=== PATIENT | female | born 1955 | race Two or more races ===

== ENCOUNTER → 2021-05-12 | Outpatient (CLI) | payer MEDICARE, BC | END | disposition home or self-care (01) | LOC: Rad HDHVI 08:42 | PROVIDERS: ATTEND Internal Medicine Cardiovascular Disease | DX: I10 Essential (primary) hypertension (principal); E78.5 Hyperlipidemia, unspecified | CPT/HCPCS: 93880 ==

== ENCOUNTER → 2022-05-13 | Outpatient (CLI) | payer MEDICARE, BC ==
[2022-05-13 11:36] LABS: Urine Blood Negative /uL (Negative); Urine Specific Gravity 1.012 (1.001-1.035)
[2022-05-13 11:49] LABS: Basophils # (auto) 0 10 ^3/uL (0-0.2); Basophils % (auto) 0.6 % (0.0-2.0); Eosinophils # (auto) 0.1 10 ^3/uL (0-0.8); Eosinophils % (auto) 1.5 % (0.0-7.0); Hematocrit 39.2 % (36.0-46.0); Hemoglobin 13.2 g/dL (12.2-16.2); Lymphocytes # (auto) 1.8 10 ^3/uL (0.4-5.4); Lymphocytes % (auto) 29.7 % (10.0-50.0); Mean Corpuscular Hemoglobin 31.5 pg (28.0-32.0); Mean Corpuscular Hgb Conc. 33.6 g/dL (32.0-36.0); Mean Corpuscular Volume 93.6 fL (80.0-100.0); Monocytes # (auto) 0.5 10 ^3/uL (0-1.3); Monocytes % (auto) 7.7 % (0.0-12.0); Neutrophils # (auto) 3.6 10 ^3/uL (1.6-8.6); Neutrophils % (auto) 60.5 % (37.0-80.0); Nucleated Red Blood Cells % 0.1 %; Red Blood Cells 4.19 10^6/uL (4.0-5.20); Red Cell Distribution Width 12.3 % (11.8-14.3); White Blood Cell 5.9 10^3/uL (4.4-10.8)
[2022-05-13 12:03] LABS: BUN/Creatinine Ratio 24.2; Potassium 3.6 mmol/L (3.5-5.1)
[2022-05-13 12:04] LABS: Albumin 3.9 g/dL (3.4-5.0); Bilirubin, Total 0.7 mg/dL (0.2-1.0); Calcium 9.5 mg/dL (8.5-10.1); Total Protein 7.4 g/dL (6.4-8.2)
[2022-05-13 12:16] LABS: Free T4 (Free Thyroxine) 1.26 ng/dL (0.89-1.76)
== END | disposition home or self-care (01) ==
LOC: LAB 09:32
PROVIDERS: ATTEND Internal Medicine Cardiovascular Disease
DX: I11.0 Hypertensive heart disease with heart failure (principal); I50.43 Acute on chronic combined systolic (congestive) and diastolic (congestive) heart failure; E55.9 Vitamin D deficiency, unspecified; D51.3 Other dietary vitamin B12 deficiency anemia; D64.9 Anemia, unspecified; E11.9 Type 2 diabetes mellitus without complications; R00.2 Palpitations; R53.1 Weakness; R30.0 Dysuria
CPT/HCPCS: 36415; 80053; 80061; 81003; 82306; 82607; 83036; 84439; 84443; 85025

== ENCOUNTER → 2022-06-24 | Outpatient (CLI) | payer MEDICARE, BC | END | disposition home or self-care (01) | LOC: Rad HDHVI 13:48 | PROVIDERS: ATTEND Internal Medicine Cardiovascular Disease | DX: R00.2 Palpitations (principal); I10 Essential (primary) hypertension | CPT/HCPCS: 93306 ==

== ENCOUNTER → 2023-05-31 | Outpatient (CLI) | payer MEDICARE, BC | END | disposition home or self-care (01) | LOC: Rad HDHVI 15:50 | PROVIDERS: ATTEND Internal Medicine Cardiovascular Disease | DX: I10 Essential (primary) hypertension (principal) | CPT/HCPCS: 93925 ==

== ENCOUNTER → 2023-06-26 | Outpatient (CLI) | payer MEDICARE, BC ==
[~2023-06-26] MED LIST: ALPR0.25 PO; ARGI500C5 PO; ATOR40TA52 PO; CLON0.1T PO; CYCL-839 PO; DICY10CA PO; DULO1CAP6 PO; ERGO1CAP12 PO; ESTR1TAB5 PO; MAGN1POW PO; METO-289 PO; OMEP20TA PO; OXYB5TAB24 PO; POTA10TA51 PO; TRIA75TA55 PO; TURMPOW PO; VALS160T6 PO
[2023-06-26 10:22] VITALS: BP 137/65; PULSE 70; RESP 16; O2SAT 98
[2023-06-26 10:39] VITALS: BP 119/61; PULSE 65; RESP 16; O2SAT 98
== END | disposition home or self-care (01) ==
LOC: CHF HDHVI 09:59
PROVIDERS: ATTEND Internal Medicine Cardiovascular Disease
DX: Z01.818 Encounter for other preprocedural examination (principal); R06.02 Shortness of breath; I10 Essential (primary) hypertension; I27.21 Secondary pulmonary arterial hypertension
CPT/HCPCS: 93005; G0463

== ENCOUNTER 2023-06-29 06:50 | Day surgery (SDC) | payer MEDICARE, BC ==
[2023-06-26 12:37] LABS: Basophils # (auto) 0 10 ^3/uL (0-0.2); Basophils % (auto) 0.7 % (0.0-2.0); Eosinophils # (auto) 0.1 10 ^3/uL (0-0.8); Eosinophils % (auto) 1.5 % (0.0-7.0); Hemoglobin 13.3 g/dL (12.2-16.2); Lymphocytes # (auto) 1.9 10 ^3/uL (0.4-5.4); Lymphocytes % (auto) 30.5 % (10.0-50.0); Monocytes # (auto) 0.5 10 ^3/uL (0-1.3); Monocytes % (auto) 8.3 % (0.0-12.0); Neutrophils # (auto) 3.7 10 ^3/uL (1.6-8.6); Nucleated Red Blood Cells % 0.1 %; Red Blood Cells 4.15 10^6/uL (4.0-5.20); Red Cell Distribution Width 12.4 % (11.8-14.3); White Blood Cell 6.3 10^3/uL (4.4-10.8)
[2023-06-26 12:52] LABS: INR 1.12 (0.9-1.15); Partial Thromboplastin Time 27.3 SEC (24.5-34.5); Prothrombin Time 11.7 sec (9.3-11.8)
[2023-06-26 13:26] LABS: Anion Gap 7 (5-15); Carbon Dioxide 31 mmol/L (20-30); Chloride 100 mmol/L (98-107); Potassium 3.6 mmol/L (3.5-5.1); Sodium 138 mmol/L (136-145)
[2023-06-26 13:28] LABS: Calcium 10.6 mg/dL (8.5-10.1)
[2023-06-26 13:32] LABS: BUN/Creatinine Ratio 12.4 (10.0-20.0); Blood Urea Nitrogen 14 mg/dL (9-23); Glucose 108 mg/dL (74-106)
[2023-06-29] VITALS (7 sets, daily range): BP systolic 136–151; BP diastolic 47–67; PULSE 60–70; RESP 12–15; O2SAT 94–99
[~2023-06-29] VITALS: Ht 157.5 cm; Wt 56.7 kg
[2023-06-29] MEDS ORDERED: IOHEXOL 350 MG/ML 100ML IJ ONE ×2 (07:49→08:23)
[2023-06-29] MEDS ORDERED: IODIXANOL 320MG/ML 100ML BTL IV ONE ×2 (07:49→08:37)
[2023-06-29] MEDS ORDERED: LIDOCAINE 2%HCL (LOCAL ANESTH.) INJ 20ML MDV ONE ×2 (07:49→08:23)
[2023-06-29] MEDS ORDERED: diphenhdrAMINE HCL 50 MG/1 ML VL ONE (08:22)
[2023-06-29] MEDS ORDERED: methylPREDNISolone SOD SUCC 125 MG/2 ML VL ONE (08:22)
[2023-06-29] MEDS ORDERED: fentaNYL CITRATE 100 MCG/2 ML VL ONE (08:23)
[2023-06-29] MEDS ORDERED: MIDAZOLAM HCL 2MG/2ML 2ml VIAL (1mg/ml) ONE (08:23)
[2023-06-29] MEDS ORDERED: FAMOTIDINE (10MG/ML) 2ML VL IV ONE (08:23)
[2023-06-29] MEDS ORDERED: SODIUM CHL 0.9% 0 ML ONE (08:24)
[2023-06-29] MEDS ORDERED: ANGIOMAX 250 MG VIAL IV ONE (08:24)
[2023-06-29] MEDS ORDERED: ACETAMINOPHEN 500 MG TAB PO ONE (10:25)
[2023-06-29] MEDS: ACETAMINOPHEN 500 MG TAB PO ONE ×2 (10:32→10:36)
== END 2023-06-29 11:35 | disposition home or self-care (01) ==
LOC: CATH 06:50
PROVIDERS: ATTEND Internal Medicine Cardiovascular Disease
DX: R07.89 Other chest pain (principal); R06.02 Shortness of breath; I27.20 Pulmonary hypertension, unspecified; I73.00 Raynaud's syndrome without gangrene; I73.9 Peripheral vascular disease, unspecified; I10 Essential (primary) hypertension; E78.5 Hyperlipidemia, unspecified; G62.9 Polyneuropathy, unspecified; M79.7 Fibromyalgia
CPT/HCPCS: 36415; 80048; 85025; 85610; 85730; 93460; C1757; C1894; J1200; J1644; J2250; J2930; J3490; Q9967; 99152

== ENCOUNTER → 2023-08-28 | Outpatient (CLI) | payer MEDICARE, BC | END | disposition home or self-care (01) | LOC: Rad HDHVI 13:45 | PROVIDERS: ATTEND Internal Medicine Cardiovascular Disease | DX: I10 Essential (primary) hypertension (principal); R00.2 Palpitations | CPT/HCPCS: 93306 ==

== ENCOUNTER → 2023-12-20 | Outpatient (CLI) | payer MEDICARE, BC ==
[~2023-12-20] MED LIST changes: +POTA-36 PO; -POTA10TA51 PO; +READI-CAT 2 (BARIUM SULF)(VANILLA SMOOTHIE) 450ML ONE
== END | disposition home or self-care (01) ==
LOC: Rad HDHVI 14:52
PROVIDERS: ATTEND Internal Medicine Cardiovascular Disease
DX: K76.0 Fatty (change of) liver, not elsewhere classified (principal); K42.9 Umbilical hernia without obstruction or gangrene; I70.0 Atherosclerosis of aorta; M16.11 Unilateral primary osteoarthritis, right hip; M76.21 Iliac crest spur, right hip; Z90.710 Acquired absence of both cervix and uterus; Z90.49 Acquired absence of other specified parts of digestive tract
CPT/HCPCS: 73700; 74176

== ENCOUNTER → 2024-04-04 | Outpatient (CLI) | payer MEDICARE, BC ==
[~2024-04-04] MED LIST changes: -READI-CAT 2 (BARIUM SULF)(VANILLA SMOOTHIE) 450ML ONE
== END | disposition home or self-care (01) ==
LOC: Rad HDHVI 10:58
PROVIDERS: ATTEND Internal Medicine Cardiovascular Disease
DX: M17.11 Unilateral primary osteoarthritis, right knee (principal); M25.561 Pain in right knee; M25.511 Pain in right shoulder
CPT/HCPCS: 73030; 73562

== ENCOUNTER → 2024-09-10 | Outpatient (CLI) | payer MEDICARE, BC ==
--- NOTE | 2024-09-10 14:42 | DVH ---
XY CHEST TWO VIEWS ROUTINE CLINICAL HISTORY: PRE OP/pain COMPARISON: None TECHNIQUE: Frontal and lateral view of the chest was obtained FINDINGS: Lines and Tubes: None Lungs: No focal consolidation. Pleura: No effusion. No pneumothorax. Cardiomediastinal contours: Unremarkable Bones: No acute osseous abnormality. IMPRESSION: No acute cardiopulmonary disease.
== END | disposition home or self-care (01) ==
LOC: Rad HDHVI 12:35
PROVIDERS: ATTEND Internal Medicine Cardiovascular Disease
DX: R06.02 Shortness of breath (principal)
CPT/HCPCS: 71046

== ENCOUNTER → 2024-09-11 | Outpatient (CLI) | payer MEDICARE, BC | END | disposition home or self-care (01) | LOC: Rad HDHVI 08:01 | PROVIDERS: ATTEND Internal Medicine Cardiovascular Disease | DX: Z01.810 Encounter for preprocedural cardiovascular examination (principal) | CPT/HCPCS: 93306 ==

== ENCOUNTER → 2024-09-13 | Outpatient (CLI) | payer MEDICARE, BC ==
[~2024-09-13] VITALS: Ht 157.5 cm; Wt 63.5 kg
[~2024-09-13] MED LIST changes: +ADENOSINE 53 MG in GIVE UN-DILUTED 0 ML IV ONE; +ADENOSINE 90 MG/30 ML INJ IV ONE
== END | disposition home or self-care (01) ==
LOC: Rad HDHVI 08:28
PROVIDERS: ATTEND Internal Medicine Cardiovascular Disease
DX: Z01.810 Encounter for preprocedural cardiovascular examination (principal); R07.89 Other chest pain; R06.02 Shortness of breath; E78.00 Pure hypercholesterolemia, unspecified; I47.20 Ventricular tachycardia, unspecified; I11.9 Hypertensive heart disease without heart failure; Z82.49 Family history of ischemic heart disease and other diseases of the circulatory system
CPT/HCPCS: 78452; 93005; 93017; A9500; J0153; 96374; 96375

== ENCOUNTER 2025-01-06 08:58 | Outpatient (CLI) | payer MEDICARE, BC ==
[~2025-01-06 08:58] MED LIST changes: -ADENOSINE 53 MG in GIVE UN-DILUTED 0 ML IV ONE; -ADENOSINE 90 MG/30 ML INJ IV ONE
--- NOTE | 2025-01-06 13:27 | DVH ---
CLINICAL INFORMATION: Abdominal pain. Rule out hernia. TECHNIQUE: Axial CT images of the abdomen and pelvis were obtained without IV contrast. Coronal and s agittal reformatted images were obtained, reviewed, and stored. Evaluation of the parenchymal organs is limited without IV contrast. Evaluation of the bowel and mesentery is limited without oral contras t. All CT scans at this medical facility are performed using dose modulation techniques as appropriat e to a performed exam including the following: Automated exposure control was utilized; adjustment of the MA and/or KV according to patient size; and use of iterative reconstruction technique. CTDIvol = 4.88 mGy DLP = 231.58 mGy-cm COMPARISON: CT CT AB PEL WITH ORAL CON ONLY on DOS: 12/20/23, [facility] on DOS: 06/24/22 FINDINGS: Lung bases: Lung bases are clear. Liver: Hepatic steatosis. Biliary: Cholecystectomy. Spleen: Unremarkable. Pancreas: Grossly unremarkable in its noncontrast enhanced appearance. Adrenal glands: Unremarkable. No mass. Kidneys: No hydronephrosis. No renal or ureteral calculi. Aorta/Vascular: Dense arterial calcification. No abdominal aortic aneurysm. Retroperitoneum: No mass or lymphadenopathy. Bowel/mesentery: No small bowel obstruction. No free air or free fluid. Appendix is visualized and ap pears unremarkable. Moderate stool in the colon. Pelvic organs: Uterus is surgically absent. Bladder: Underdistended and suboptimally evaluated. No gross abnormality identified. Abdominal wall: No mass or hernia. Bones: Multiple sclerotic lesions are seen, including in the right sacral ala, left iliac bone near t he left acetabulum, and right posterior iliac bone, likely bone islands, not significantly changed. IMPRESSION: 1. Hepatic steatosis. 2. No abdominal or inguinal hernia visualized. 3. Otherwise, no acute abnormality identified in the abdomen or pelvis. 4. Sclerotic lesions as described above, minimally changed compared to the prior CT, likely bone love nds.
== END 2025-01-06 17:00 | disposition home or self-care (01) ==
LOC: Rad HDHVI 08:58
PROVIDERS: ATTEND Internal Medicine Cardiovascular Disease
DX: K76.0 Fatty (change of) liver, not elsewhere classified (principal); Z90.49 Acquired absence of other specified parts of digestive tract; I70.90 Unspecified atherosclerosis; Z90.710 Acquired absence of both cervix and uterus
CPT/HCPCS: 74176